=== PATIENT | female | born 1960 | race Caucasian/White ===

== ENCOUNTER → 2017-03-10 | Day surgery (SDC) | payer BC ==
[~2017-03-10] VITALS: Ht 177.8 cm; Wt 69.0 kg
[~2017-03-10] MED LIST: CEPH-460 PO; CHLORHEXIDINE GLUCONATE 2 % 1 PACK (2 CLOTHS) TOPICAL PRN; DEXAMETHASONE SOD PHOS 4 MG/ML VIAL ONE; FAMOTIDINE 20 MG/2 ML VIAL ONE; INSULIN HUMAN REGULAR 1,000 UNITS/10 ML VIAL SQ PRN; LACT1CAP18 PO; LACTATED RINGER'S 1000 ML IV PRN; METOPROLOL TARTRATE 25 MG TAB PO PRN; MIDAZOLAM HCL 5 MG/ML VIAL (1 ML) ONE; MULTTAB67 PO; NEOMYCIN/POLYMYXIN 1 ML G.U. IRRIGANT IRRIGATION ONE; NORC5TAB PO; OMEG300C5 PO; OMEP40CA2 PO; POVIDONE IODINE 5% (ANTISEPSIS KIT) 4 APPLICATIONS EACH NARE PRN; PROZ20CA11 PO; SODIUM CHLORID 0.9% 500 ML IV PRN; [UNRECOGNIZED DRUG - OTHER]; ceFAZolin 2 GM PREMIX 50 ML IV SCH
[2017-03-10 08:00] VITALS: PULSE 67
[2017-03-10 08:20] VITALS: PULSE 71
[2017-03-10 11:11] VITALS: PULSE 97
[2017-03-10 11:45] VITALS: TEMP 98.7
--- NOTE | 2017-03-10 12:24 | MP ---
cc: GIANLUCA POLANCO III, M.D. 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 PROCEDURE 1. Right scaphoidectomy and four corner fusion. 2. Right posterior interosseous neurectomy. 3. Use of image intensifier SURGEON Gianluca Polanco III, MD PROCEDURE The patient was brought to the operating room, placed supine on the operating table. After the correct site and side of surgery were verified by members of each team in the room multiple times including the patient and myself and after adequate preoperative markings and preoperative written consent were verified by everyone and after adequate preoperative time-out was performed to everyone's satisfaction and after adequate nerve block was achieved, the right upper extremity was prepped and draped in the traditional sterile surgical fashion. The mini C-arm was used throughout the case to guide the case along. The limb was exsanguinated. A highly placed well-padded axillary tourniquet was inflated to 200 mmHg to a total of 120 minutes. An angled dorsal incision was made on the back of the wrist and carried down through the skin and subcutaneous tissue. Blunt dissection was performed. An ulnarly sided retinacular flap was then elevated. The third dorsal compartment was opened and the EPL tendon was allowed to be free. The fourth dorsal compartment was then mobilized ulnarly. A ligament sparing capsulotomy with a radially based flap was made in the usual fashion. The scaphoid was then identified. The lunate fossa was then examined. It was found to be pristine as was the proximal aspect of the lunate. A scaphoidectomy was then performed. The capitate, hamate, lunate and triquetrum and their articulations were then meticulously decorticated down to cancellus bone. The distal radius was then used to harvest cancellous bone graft. Thorough irrigation with saline was performed using four liters total throughout the case. The lunate was then reduced to a neutral orientation and held in place with a 62 K-wire. The capitate was then reduced onto the lunate and then using the TriMed fusion cup, the smaller of the two cups was used and countersunk into the four corners. Bone graft was then copiously packed into the area and in between the four bones. Holes were drilled and screws were tailored to length and angled with nearly two screws in all the four bones. Passive range of motion examination was performed and it was full. There was no impingement of the cup dorsally on rim of the radius and all four bones moved as a unit easily. There was no obvious prominence of any screw anywhere. There was no impingement at all on the radial styloid. A styloidectomy was not done. Thorough irrigation again was performed. The wrist capsule was closed using interrupted and running 2-0 Ethibond sutures. Once this was done, DBX bone putty was used to fill the cancellous defect created in the distal radius. Thorough irrigation was performed again. Extensor retinaculum was repaired using 3-0 Vicryl sutures in an interrupted fashion. As stated before, bones were moved fully as a unit on passive range of motion examination and there was no restriction anywhere. Thorough irrigation was performed again. The deep subcutaneous tissues were reapproximated using 4-0 Vicryl sutures and then the skin edges were reapproximated using interrupted and running 4-0 nylon sutures. The hand was thoroughly cleansed dried. Betadine Adaptic dressings were applied on top of the wound followed by a bulky soft dressing. The axillary tourniquet was released and the hand and all the fingers became immediately soft, pink, warm and brisk capillary refill. The skin flap dorsally became pink as well. There was no evidence of any hematoma formation. Hemostasis was present. A well-padded, well molded volar immobilizing splint was made in the usual fashion. The patient was awakened from anesthesia and transported to the Post Anesthesia Care Unit awake in stable condition at the end of the case. The sponge, needle and instrument counts were correct at the end of the case as reported by nurses in the room. MD RENO Cruz III/VERONICA /11:42 AM /12:11 PM
[2017-03-10 12:35] VITALS: BP 94/61; PULSE 90; RESP 14; O2SAT 97
--- NOTE | 2017-03-11 18:29 | EKG ---
Date Performed: 03/10/2017 Time Performed: 07:56:37 PTAGE: 56 years EKG: Sinus rhythm NORMAL ECG NO PREVIOUS TRACING DOCTOR: Drea Beal Interpretating Date/Time 03/11/2017 18:19:41
== END | disposition home or self-care (01) ==
LOC: PHSDC 06:27
PROVIDERS: ATTEND Orthopaedic Surgery Hand Surgery
DX: M21.931 Unspecified acquired deformity of right forearm (principal); M25.331 Other instability, right wrist; M19.031 Primary osteoarthritis, right wrist; Z01.810 Encounter for preprocedural cardiovascular examination
CPT/HCPCS: 01830; 25210; 25810; 64415; 76000; 93005; C1713; J0690; J1100; J2250; J7120